=== PATIENT | female | born 2000 | race Hispanic/Latino ===

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

== ENCOUNTER 2024-11-11 12:35 | Outpatient (CLI) | payer BC ==
[2024-11-11] MEDS ORDERED: Magnevist 469MG/ML 20 ML VIAL ONE (16:03)
== END 2024-11-11 12:36 | disposition home or self-care (01) ==
LOC: BICMRI 12:35
PROVIDERS: ATTEND Family Medicine
DX: R51.9 Headache, unspecified (principal)
CPT/HCPCS: 70553

== ENCOUNTER 2025-06-25 08:59 | Emergency (ER) | payer BC ==
[2025-06-25] MEDS ORDERED: Metoclopramide HCl 10 MG (2 mL) VIAL ONE (10:39)
[2025-06-25] MEDS ORDERED: Ketorolac Tromethamine 30 MG (1 mL) VIAL ONE ×2 (10:39→10:41)
[2025-06-25] MEDS ORDERED: diphenhydrAMINE 50 MG/ML VIAL ONE (10:39)
[2025-06-25 10:45] LABS: #Basophils 0.05 10x3/uL (0.0-0.2); #Eosinophils 0.51 10x3/uL (0.0-0.7); #Monocytes 0.66 10x3/uL (0.11-0.59); #Neutrophils 3.70 10x3/uL (1.40-6.50); %Basophils 0.6 % (0.0-1.0); %Eosinophils 6.5 % (0.0-10.0); %Lymphocytes 37.0 % (21.0-51.0); %Monocytes 8.4 % (0.0-10.0); %Neutrophils 47.2 % (42.0-75.0); Hematocrit 43.5 % (36.0-47.0); Hemoglobin 15.0 g/dL (12.0-16.0); Mean Corpuscular Hemoglobin 31.1 pg (27.0-31.0); Mean Corpuscular Volume 90.2 fL (78.0-98.0); Platelet Count 440 10x3/uL (130-400); Red Blood Cell (RBC) Count 4.82 mill/uL (4.20-5.40); White Blood Cell (WBC) Count 7.84 10x3/uL (4.8-10.8)
[2025-06-25 10:48] LABS: Bacteria/HPF 4+ HPF (None Seen); CAUTI Indications for Culture Dysuria,urgency,freq; Glucose, Urine (Dipstick) Normal (Negative); Leukocyte 25 Leu/uL (Negative); Protein, Urine (Dipstick) Negative (Neg-Trace); RBC/HPF 0-3 HPF (0-3); Specific Gravity, Urine 1.006 (1.002-1.036)
[2025-06-25 10:49] LABS: Urine Culture Reflex No No
[2025-06-25 10:53] LABS: BHCG - Serum Negative (NEGATIVE); Pregs Control Background? CLEAR/WHITE (CLR/WHITE); Pregs Control Bar Appear? YES (CONTROL BAR)
[2025-06-25 11:12] LABS: ALT (SGPT) 12 U/L (Less than 34); AST (SGOT) 22 U/L (11-34); Albumin 4.5 g/dL (3.1-4.5); Alkaline Phosphatase 60 U/L (40-110); Anion Gap 14 mmol/L (10-20); BUN (Urea Nitrogen) 7 mg/dL (7.0-18.7); Bilirubin, Total 0.5 mg/dL (0.3-1.2); Calc. Creatinine Clearance 0 mL/min (70-130); Calcium 9.4 mg/dL (7.8-10.44); Carbon Dioxide 24 mmol/L (22-29); Chloride 106 mmol/L (98-107); Globulin 3.1 g/dL (2.4-3.5); Glucose 82 mg/dL (70-105); Magnesium 2.0 mg/dL (1.6-2.6); Potassium 4.1 mmol/L (3.5-5.1); Sodium 140 mmol/L (136-145)
== END 2025-06-25 11:33 | disposition home or self-care (01) ==
LOC: ERS 08:59
DX: R42 Dizziness and giddiness (principal); R29.700 NIHSS score 0
CPT/HCPCS: 80053; 81001; 83735; 84703; 85025; 93005; 96365; 96375; J1200; J1885; J2765